=== PATIENT | female | born 1985 | race Caucasian/White ===

== ENCOUNTER 2023-02-01 23:31 | Outpatient (CLI) | payer OTHER, BC, SELFPAY | END 2023-02-01 23:32 | disposition home or self-care (01) | PROVIDERS: Visit Provider Emergency Medicine | DX: S29.9XXA Unspecified injury of thorax, initial encounter (principal); V49.40XA Driver injured in collision with unspecified motor vehicles in traffic accident, initial encounter; Y92.410 Unspecified street and highway as the place of occurrence of the external cause | CPT/HCPCS: A0425; A0427 ==

== ENCOUNTER 2023-04-06 09:34 | Outpatient (CLI) | payer BC, SELFPAY ==
--- NOTE | 2023-04-06 09:40 | CRLHL7_ITS ---
For Patients: As a result of the Century Cures Act, medical imaging exams and procedure reports are released immediately into your electronic medical record. You may view this report before your referring provider. If you have questions, please contact your health care provider. INDICATION: KIDNEY/Urethra DISORDER TECHNIQUE: CT abdomen and pelvis urogram without and with 81 cc Isovue 370 contrast. Contrast images were obtained in the nephrographic and delayed phases. COMPARISON: 02/02/2023 FINDINGS: KIDNEYS: The unenhanced images demonstrate no kidney or ureteral stones. The kidneys are normal in caliber and demonstrate normal uptake and excretion of IV contrast. There is an 8 millimeter exophytic structure arising from the lower pole of the left kidney with mild internal enhancement. The renal collecting systems and ureters are symmetrical, normal in caliber, and without evidence of mass or filling defect. URINARY BLADDER: The urinary bladder is normal in caliber and without evidence of mass, wall thickening, or inflammation. OTHER: GI tract is normal in caliber and appearance. The liver is normal in caliber and attenuation. Spleen, pancreas, and adrenal glands are normal. No mass or adenopathy. IMPRESSION: 1. Small exophytic lesion arising from the lower pole of the left kidney measuring 8 millimeters demonstrating mild enhancement. Dedicated renal MRI is recommended for further evaluation. 2. No other acute or significant findings. Please note that all CT scans at this facility use dose modulation, iterative reconstruction, and/or weight-based dosing when appropriate to reduce radiation dose to as low as reasonably achievable. Dictated by Rubin Gamez MD @ 04/06/2023 1:43:06 PM (Electronically Signed)
== END 2023-04-06 09:35 | disposition home or self-care (01) ==
LOC: CT 09:35
PROVIDERS: PCP Nurse Practitioner Family; Visit Provider Nurse Practitioner Family
DX: N28.89 Other specified disorders of kidney and ureter (principal)
CPT/HCPCS: 74178; Q9967

== ENCOUNTER 2023-05-18 13:32 | Outpatient (CLI) | payer OTHER, BC, SELFPAY ==
--- NOTE | 2023-05-18 14:00 | CRLHL7_ITS ---
For Patients: As a result of the Century Cures Act, medical imaging exams and procedure reports are released immediately into your electronic medical record. You may view this report before your referring provider. If you have questions, please contact your health care provider. INDICATION: Small lesion arising from the lower pole of the left kidney. COMPARISON: CT urogram dated 06 April 2023. TECHNIQUE: Abdominal MRI with T1 in- and out of phase, T2, diffusion weighted, and progressively delayed post-contrast images. Intravenous gadolinium administered. FINDINGS: No fatty infiltration of the liver. No focal abnormalities identified in the visualized portions of the liver, spleen, pancreas, and adrenal glands. 1.3 cm lesion arising from the anterior aspect of the lower pole of the left kidney shows mild heterogeneous enhancement. The kidneys are otherwise unremarkable. No hydronephrosis. No adenopathy. The renal veins and IVC are patent. Impression : 1. 1.3 cm lesion extending off the lower pole of the left kidney shows heterogeneous enhancement and likely represents a renal cell carcinoma. Recommend urology consultation. Dictated by Shahriar Valentino MD @ 05/22/2023 1:14:09 PM (Electronically Signed)
== END 2023-05-18 13:33 | disposition home or self-care (01) ==
LOC: MRI 13:34
PROVIDERS: PCP Nurse Practitioner Family; Visit Provider Nurse Practitioner Family
DX: R93.422 Abnormal radiologic findings on diagnostic imaging of left kidney (principal)
CPT/HCPCS: 73721; 74183; A9575

== ENCOUNTER 2023-05-18 13:33 | Outpatient (CLI) | payer OTHER, SELFPAY ==
--- NOTE | 2023-05-18 13:45 | CRLHL7_ITS ---
For Patients: As a result of the Century Cures Act, medical imaging exams and procedure reports are released immediately into your electronic medical record. You may view this report before your referring provider. If you have questions, please contact your health care provider. EXAM: MRI OF THE LEFT KNEE, WITHOUT CONTRAST CLINICAL INDICATION: Left knee pain. COMPARISON STUDIES: 02/11/2023 radiographs. TECHNICAL: Axial, sagittal and coronal T1, PD, PD FS and T2 FS images. Knee coil. FINDINGS: MEDIAL COMPARTMENT: Medial Meniscus: Normal size and morphology without tear. Articular Cartilage: Articular surfaces appear smooth without focal articular cartilage defect or subchondral marrow changes. - LATERAL COMPARTMENT: Lateral Meniscus: Normal size and morphology without tear. Articular Cartilage: Articular surfaces appear smooth without focal articular cartilage defect or subchondral marrow changes. - PATELLOFEMORAL COMPARTMENT: Articular Cartilage: Articular surfaces appear smooth without focal articular cartilage defect or subchondral marrow changes. - LIGAMENTS: Anterior Cruciate Ligament: Normal. Posterior Cruciate Ligament: Normal. - MEDIAL COLLATERAL LIGAMENT AND POSTEROMEDIAL CORNER COMPLEX: Medial Collateral Ligament: Normal. Medial Head of the Gastrocnemius and Semimembranosus Tendons: Normal. - LATERAL COLLATERAL LIGAMENT COMPLEX AND POSTEROLATERAL CORNER COMPLEX: Fibular Collateral Ligament: Normal. Distal Biceps Femoris Tendon Complex: Normal. Iliotibial Band: Normal. Popliteus Tendon: Normal. Posterolateral Corner Capsule: Normal. - EXTENSOR MECHANISM: Distal Quadriceps Tendon: Normal. Patellar Tendon: Normal. Medial Patellar Retinaculum and Medial Patellofemoral Ligament: Normal. Lateral Patellar Retinaculum: Normal. Patellar Alignment: Normal patellar alignment. - JOINT SPACE AND CAPSULE: Effusion: Small joint effusion. No popliteal cyst or synovitis. Joint Bodies: None seen. - BONES: No fracture, marrow edema or marrow replacement process. - SOFT TISSUES: No mass or fluid collection. No periarticular ganglia. No bursitis. IMPRESSION: 1. Small knee joint effusion. 2. No evidence for internal derangement. Dictated by Mario Gooden MD @ 05/19/2023 4:59:41 PM (Electronically Signed)
== END 2023-05-18 13:34 | disposition home or self-care (01) ==
LOC: MRI 08-26 15:50
PROVIDERS: PCP Nurse Practitioner Family; Visit Provider Physician Assistant Surgical
DX: M25.562 Pain in left knee (principal); M25.462 Effusion, left knee
CPT/HCPCS: 73721

== ENCOUNTER 2023-06-23 11:07 | Outpatient (CLI) | payer BC, SELFPAY | END 2023-06-23 11:08 | disposition home or self-care (01) | LOC: LKVREF 11:08 | PROVIDERS: PCP Nurse Practitioner Family; Visit Provider Emergency Medicine | DX: Z01.818 Encounter for other preprocedural examination (principal) | CPT/HCPCS: 80053 ==